=== PATIENT | male | born 1955 | race Caucasian/White ===

== ENCOUNTER → 2021-12-04 | Outpatient (CLI) | payer MEDICARE, OTHER ==
--- NOTE | 2021-12-04 12:44 | MR ---
EXAMINATION TYPE: MR lumbar spine wo con DATE OF EXAM: 12/04/2021 COMPARISON: Outside lumbar spine x-ray September 15, 2021 HISTORY: Pain into rt side TECHNIQUE: Multiplanar, multisequence imaging of the lumbar spine is performed without IV contrast. FINDINGS: Sagittal images of the lumbar spine show vertebral body heights to remain satisfactory. Al ignment is stable and straightened. There is multilevel disc desiccation. There is advanced disc spac e narrowing with heterogeneous Modic type II endplate changes and moderate anterior spurring at L4-L5 level. There is mild to moderate disc space narrowing and spurring at L3-L4 level. The conus medull leonor is normal in position and signal ending mid L1 level. Axial images at the T12-L1 and L1-L2 levels appear within normal limits. Axial images at L2-L3 level shows moderate broad-based disc bulge effacing the anterior thecal sac. T here is mild to moderate facet arthropathy and flavum hypertrophy effacing the thecal sac. There is m ild to moderate right greater than left bilateral anterior inferior neural foraminal narrowing. Axial images at the L3-L4 level show posterior spur disc complex effacing the anterior thecal sac jez ng with mild to moderate facet arthropathy and ligamentum flavum hypertrophy effacing the posterior l ateral thecal sac. There is dvbr-xn-xdbxnewg bilateral anterior inferior neural foraminal narrowing. Axial images at the L4-L5 level show posterior spur disc complex effacing the anterior thecal sac. Th ere is mild/moderate facet arthropathy and ligamentum flavum hypertrophy bilaterally. There is mild b ilateral neural foraminal narrowing. Axial images at the L5-S1 level mild/moderate facet arthropathy bilaterally. There is tiny central di sc protrusion. Spinal canal is preserved and there is increased epidural fat. There is mild to modera te bilateral neural foraminal narrowing. Paraspinal muscle bulk is maintained. IMPRESSION: Straightening of lumbar spine with multilevel degenerative changes mid to lower lumbar le vels seen as detailed above.
== END | disposition home or self-care (01) ==
LOC: RADMRIMAIN 10:55
PROVIDERS: ATTEND Nurse Practitioner Family
DX: M47.26 Other spondylosis with radiculopathy, lumbar region (principal); M48.061 Spinal stenosis, lumbar region without neurogenic claudication
CPT/HCPCS: 72148

== ENCOUNTER → 2022-02-13 | Outpatient (CLI) | payer MEDICARE, OTHER ==
--- NOTE | 2022-02-14 05:02 | MR ---
EXAMINATION TYPE: MR shoulder RT wo con DATE OF EXAM: 02/13/2022 COMPARISON: None HISTORY: Right shoulder pain Multiplanar multiecho imaging of the right shoulder performed with no contrast. There is a large shoulder joint effusion. There is spurring at the AC joint with mild subacromial imp ingement. There is large defect in the supraspinatus tendon at the top of the humeral head. There is retraction of the tendon. There is also tear of the infraspinatus tendon near the attachment on the h umeral head. The glenoid chari appear intact. Subscapularis tendon is intact. No evidence of a fractu re. Humeral head is intact. IMPRESSION: Large rotator cuff tear with retraction of the supraspinatus tendon. There is partial tear of the inf raspinatus tendon. Large shoulder joint effusion with subdeltoid effusion.
== END | disposition home or self-care (01) ==
LOC: RADMRIMAIN 12:19
PROVIDERS: ATTEND Orthopaedic Surgery
DX: M75.121 Complete rotator cuff tear or rupture of right shoulder, not specified as traumatic (principal); M25.411 Effusion, right shoulder

== ENCOUNTER → 2022-03-27 | Outpatient (CLI) | payer MEDICARE, OTHER ==
[2022-03-27 14:38] LABS: Basophils # (A) 0.03 X 10*3/uL (0.00-0.10); Basophils % (A) 0.4 %; Eosinophils # (A) 0.12 X 10*3/uL (0.04-0.35); Eosinophils % (A) 1.5 %; HCT 50.7 % (39.6-50.0); HGB 16.8 g/dL (13.0-17.0); Immature Grans, Automated 0.1 %; Lymphocytes # (A) 2.31 X 10*3/uL (0.90-5.00); Lymphocytes % (A) 29.4 %; MCH 29.1 pg (27.0-32.0); MCHC 33.1 g/dL (32.0-37.0); MCV 87.7 fL (80.0-97.0); Mean Platelet Volume 12.1 fL (9.5-12.2); Monocytes # (A) 0.57 X 10*3/uL (0.20-1.00); Monocytes % (A) 7.3 %; NRBC Per 100 WBC 0 /100 WBCS (0.0-0.0); Neutrophils # (A) 4.82 X 10*3/uL (1.80-7.70); Neutrophils % (A) 61.3 %; Platelet Count 220 X 10*3/uL (140-440); RBC 5.78 X 10*6/uL (4.40-5.60); RDW 14.6 % (11.5-14.5); WBC 7.86 X 10*3/uL (4.50-10.00)
[2022-03-27 14:42] LABS: African American GFR (CKD) 76.2 (60.0-200.0); Anion Gap 14.5 mmol/L (10.00-18.00); BUN/Creat Ratio 15.09 Ratio (12.00-20.00); Blood Urea Nitrogen 17.2 mg/dL (9.0-27.0); Calcium 9.2 mg/dL (8.7-10.3); Carbon Dioxide 21.6 mmol/L (20.0-27.5); Non-African American GFR(CKD) 65.7 (60.0-200.0); Potassium 4.6 mmol/L (3.5-5.5)
[2022-03-27 14:46] LABS: Appearance,Urine Clear (Clear); Bilirubin,Urine Negative (Negative); Blood,Urine Negative (Negative); Color,Urine Light Yellow; Glucose,Urine (UA) 4+ (Negative); Ketones,Urine Negative (Negative); Leukocyte Esterase,Urine Negative (Negative); Nitrite,Urine Negative (Negative); Protein,Urine Negative (Negative); Specific Gravity,Urine 1.012 (1.001-1.035); Urobilinogen,Urine <2.0 mg/dL (<2.0)
== END | disposition home or self-care (01) ==
LOC: LABWHC1 10:21
PROVIDERS: ATTEND Nurse Practitioner Family
DX: Z01.812 Encounter for preprocedural laboratory examination (principal)
CPT/HCPCS: 36415; 80048; 81003; 85025; 85730

== ENCOUNTER 2022-04-25 07:30 | Day surgery (SDC) | payer MEDICARE, OTHER ==
[2022-04-18 15:08] VITALS: BMI 37.2
--- NOTE | 2022-04-24 23:21 | HP ---
HISTORY AND PHYSICAL DATE OF SURGERY: Surgery is scheduled for 04/25/2022. HISTORY OF PRESENT ILLNESS: Josh Messer is a 66-year-old gentleman, seen with progressive right shoulder pain. We discussed options for treatment. He elected to proceed with right shoulder arthroscopy. Consent was obtained. Medical and cardiac clearance were provided. PAST MEDICAL HISTORY: Insulin-dependent diabetes, hypertension, hyperlipidemia, cardiovascular disease. PAST SURGICAL HISTORY: Noncontributory. DAILY MEDICATIONS: 1. Lantus insulin. 2. Lisinopril. 3. Lovastatin. 4. Metformin. 5. Verapamil. 6. Furosemide. 7. Trulicity. 8. Lyrica. ALLERGIES: Penicillin and [place]. SOCIAL HISTORY: He denies tobacco use. PHYSICAL EVALUATION OF THE RIGHT SHOULDER: Flexion is 140 degrees, abduction is 110 degrees, external rotation is 35 degrees with some pain and weakness. Tenderness along the anterolateral acromion and rotator cuff insertion. Impingement is positive at 90. Drop-arm sign is positive. Distal neurovascular exam is intact. RADIOGRAPHS: Radiographs of the right shoulder revealed a type 2 acromion, moderate acromioclavicular joint osteoarthritis, and cystic changes of the tuberosity. Right shoulder MRI revealed a large rotator cuff tear along with an effusion. IMPRESSION: 1. Right shoulder impingement with large rotator cuff tear. 2. Right shoulder acromioclavicular joint osteoarthritis. 3. Hypertension. 4. Hyperlipidemia. 5. Insulin-dependent diabetes. PLAN: Right shoulder arthroscopy with subacromial decompression, rotator cuff repair, Yee procedure, and debridement. MMODL / IJN: [id number] /
[~2022-04-25 07:30] MED LIST: ceFAZolin 3 GM in SODIUM CHLORIDE 0.9% 100 ML IVPB PRN
[2022-04-25] MEDS ORDERED: DEXAMETHASONE SOD PHOSPHATE 4 MG/ML 1 ML VIAL IV ONE (07:53)
[2022-04-25] MEDS ORDERED: LACTATED RINGERS 1,000 ML IV SCH (07:53)
[2022-04-25] MEDS ORDERED: ONDANSETRON 4 MG/2 ML VIAL IVP ONE (07:53)
[2022-04-25] MEDS ORDERED: HYDROmorphone 0.5 MG/0.5 ML SYRINGE IVP PRN (07:53)
[2022-04-25] MEDS ORDERED: LACTATED RINGERS 1,000 ML IV ONE (08:02)
[2022-04-25 08:10] LABS: Glucose,Whole Blood 96 mg/dL (70-110)
[2022-04-25] MEDS ORDERED: MIDAZOLAM 2 MG/2 ML VIAL IVP ONE (08:37)
[2022-04-25] MEDS ORDERED: PROPOFOL 10 MG/ML 20 ML VIAL IV ONE (09:34)
[2022-04-25] MEDS ORDERED: fentaNYL (PF) 50 MCG/ML 2 ML AMP ONE (09:34)
[2022-04-25] MEDS ORDERED: LIDOCAINE 2% INJ 20 MG/ML (2 ML VIAL) ONE (09:34)
[2022-04-25] MEDS ORDERED: SUCCINYLCHOLINE CHLORIDE 200 MG/10 ML VIAL IV ONE (09:34)
[2022-04-25] MEDS ORDERED: DEXAMETHASONE SOD PHOSPHATE 4 MG/ML 1 ML VIAL ONE (09:34)
[2022-04-25] MEDS ORDERED: ROPIVACAINE 5 MG/ML 30 ML VIAL ONE (09:34)
[2022-04-25] MEDS ORDERED: MIDAZOLAM 2 MG/2 ML VIAL ONE (09:34)
--- NOTE | 2022-04-25 11:34 | P.OP ---
Date of Procedure: 04/25/22 Preoperative Diagnosis: Right shoulder impingement with rotator cuff tear Postoperative Diagnosis: 1. Right shoulder massive retracted rotator cuff tendon tear 2. Right shoulder impingement 3. Right shoulder partial long head biceps tendon tear Procedure(s) Performed: 1. Right shoulder arthroscopic rotator cuff repair 2. Right shoulder arthroscopic subacromial decompression 3. Right shoulder arthroscopic biceps tenotomy Implants: 14.75 Arthrex swivel lock anchor Anesthesia: GETA, regional (Interscalene block) Surgeon: Norbert Mejia Lighting Fixture Installer #1: Teodoro Sanz Estimated Blood Loss (ml): 11 Pathology: none sent Condition: stable Disposition: PACU Indications for Procedure: 66-year-old gentleman seen with progressive right shoulder pain. After having treatment options discussed, he elected to proceed with arthroscopy. Operative Findings: See description of procedure Description of Procedure: Patient underwent an interscalene block by department of anesthesia. The patient was then taken to the operative suite. The patient underwent a general anesthetic by the department of anesthesia. The patient was placed into a lateral position and secured. There was appropriate padding of the bony prominence. Right shoulder was then prepped and draped in normal sterile orthopedic fashion. We placed the extremity in 10 pounds of longitudinal trac tion. A posterior incision was now made for a posterior working portal site. The trocar and cannula were inserted into the glenohumeral joint. Arthroscopy was initiated. Spinal needle was now inserted anteriorly, to ascertain the anterior working portal site. An incision was now made in that area, a trocar was inserted followed by a probe. There was partial tearing of the long head biceps tendon. There was some fraying of the anterior and superior labrum. There were grade 1 chondromalacia changes of the glenohumeral joint. I performed an arthroscopic biceps tenotomy. I debrided out the superficial labral tears. The remaining labrum appeared stable. Instruments were now removed from the glenohumeral joint. Utilizing the posterior working portal site, the trocar and cannula were inse rted into the subacromial space. Arthroscopy initiated. I made an incision 2 fingerbreadths lateral to the acromion. I introduced my trocar followed by my ArthroCare ablator. I now began ablating thick subacromial bursal tissue, which exposed the undersurface of the anterior acromion. There was diminished subacromial space. There was a very prominent anterior acromion. A motorized bur was introduced and a subacromial decompression was performed. I also excised some osteophytes off the inferior aspect of the distal clavicle. The AC joint was visualized and noted to be moderately arthritic, I did not think enough toward a Yee procedure. I turned my attention to the rotator cuff tendon. There was a massive retracted tear noted. The tear measured approximately 4.55 centimeters and was retracted anteriorly to the level of the glenoid. I performed a release along the anterior, midportion and posterior aspect of the tendon. I was able just barely get release enough to possibly get over the footprint. I abraded the footprint with a motorized bur. With the assistance of Edy NELSON I pasted 3 converging sutures. This helped mobilize the tendon getting at least to the level of the footprint area. I decided to proceed with repair of this. With the assistance of Edy NELSON past 3 everted mattress suture through good bites of rotator cuff tendon. An engine manager portal site was now made off the lateral acromion. All suture limbs were passed an engine manager portal site. I punched on the footprint area for insertion of an anchor. All 6 limbs of suture were now passed through the eyelet of a 4.75 Arthrex swivel lock anchor. I placed anchors into the pre-punch hole. I held it in position while Edy NELSON tension all 6 limbs of suture and the be the anchor with good fixation noted. All residual suture limbs were clipped. The repair was under quite a bit of tension but just to the edge of the footprint. Instruments now removed from the portal sites. All portal sites were approximated with nylon suture. Sterile dressings were applied followed by a shoulder immobilizer. Teodoro NELSON assisted in this complex case. The patient was awakened, transferred to a bed, and taken to recovery in stable condition. The prognosis remains guarded given the significant retracted tear.
[2022-04-25 11:37] VITALS: TEMP 96.9
--- NOTE | 2022-04-25 13:03 | P.ANPRN ---
Procedure Note - Anesthesia - Nerve Block Performed Right Interscalene Single Date of Procedure: 04/25/22 Procedure Start Time: 08:36 Procedure Stop Time: 08:42 Location of Patient: PreOp Indication: Acute Post-Operative Pain, Requested by Surgeon Sedation Type: Sedate with meaningful contact maintained Preparation: Sterile Prep Position: Supine Needle Types: Pajunk Needle Gauge: 21 Ultrasound used to visualize needle placement: Yes Ultrasound used to observe medication spread: Yes Injectate: 0.5% Ropivacaine (see comment for volume) (20mL with Decadron 4mg) Blood Aspirated: No Pain Paresthesia on Injection Noted: No Resistance on Injection: Normal Image Stored and Saved: Yes Events: Uneventful and Well Tolerated
[2022-04-25 13:31] VITALS: BP 131/79; PULSE 72; RESP 15
== END 2022-04-25 14:00 | disposition home or self-care (01) ==
LOC: OR 07:30
PROVIDERS: ATTEND Orthopaedic Surgery
DX: S46.011A Strain of muscle(s) and tendon(s) of the rotator cuff of right shoulder, initial encounter (principal); M75.41 Impingement syndrome of right shoulder; I10 Essential (primary) hypertension; I25.10 Atherosclerotic heart disease of native coronary artery without angina pectoris; E78.5 Hyperlipidemia, unspecified; E11.9 Type 2 diabetes mellitus without complications; Z79.4 Long term (current) use of insulin; Z88.0 Allergy status to penicillin; Z88.5 Allergy status to narcotic agent; Z79.899 Other long term (current) drug therapy; M19.011 Primary osteoarthritis, right shoulder; X58.XXXA Exposure to other specified factors, initial encounter
CPT/HCPCS: 64415; 76942; 29827; 29826; C1713 ×2; J2250; J0330; J1100; J0690; J2405; J3010; J2795; J2704; J2001

== ENCOUNTER → 2022-06-27 | Outpatient (CLI) | payer MEDICARE, OTHER ==
[2022-06-27 14:26] LABS: Basophils # (A) 0.02 X 10*3/uL (0.00-0.10); Basophils % (A) 0.3 %; Eosinophils # (A) 0.16 X 10*3/uL (0.04-0.35); Eosinophils % (A) 2.3 %; HCT 50.4 % (39.6-50.0); HGB 16.2 g/dL (13.0-17.0); Immature Grans, Automated 0.3 %; Lymphocytes # (A) 2.32 X 10*3/uL (0.90-5.00); Lymphocytes % (A) 33.6 %; MCH 28.9 pg (27.0-32.0); MCHC 32.1 g/dL (32.0-37.0); MCV 89.8 fL (80.0-97.0); Mean Platelet Volume 11.3 fL (9.5-12.2); Monocytes # (A) 0.58 X 10*3/uL (0.20-1.00); Monocytes % (A) 8.4 %; NRBC Per 100 WBC 0 /100 WBCS (0.0-0.0); Neutrophils # (A) 3.81 X 10*3/uL (1.80-7.70); Neutrophils % (A) 55.1 %; Platelet Count 222 X 10*3/uL (140-440); RBC 5.61 X 10*6/uL (4.40-5.60); RDW 14.8 % (11.5-14.5); WBC 6.91 X 10*3/uL (4.50-10.00)
[2022-06-27 14:36] LABS: Anion Gap 12.5 mmol/L (10.00-18.00); BUN/Creat Ratio 13.91 Ratio (12.00-20.00); Blood Urea Nitrogen 15.3 mg/dL (9.0-27.0); Calcium 10.1 mg/dL (8.7-10.3); Carbon Dioxide 26.5 mmol/L (20.0-27.5); Non-African American GFR(CKD) 68.1 (60.0-200.0); Potassium 4.3 mmol/L (3.5-5.5)
[2022-06-27 15:23] LABS: INR 0.94 (0.90-1.11); Prothrombin Time 10.7 sec (9.9-11.9)
[2022-06-27 17:47] LABS: Appearance,Urine Clear (Clear); Bilirubin,Urine Negative (Negative); Blood,Urine Negative (Negative); Color,Urine Yellow (Yellow); Ketones,Urine Negative (Negative); Nitrite,Urine Negative (Negative); Specific Gravity,Urine 1.013 (1.001-1.030); Urobilinogen,Urine 0.2 (0.2,1.0)
== END | disposition home or self-care (01) ==
LOC: LABPAT 10:50
PROVIDERS: ATTEND Orthopaedic Surgery
DX: Z01.812 Encounter for preprocedural laboratory examination (principal); Z22.322 Carrier or suspected carrier of Methicillin resistant Staphylococcus aureus; M47.816 Spondylosis without myelopathy or radiculopathy, lumbar region; M48.061 Spinal stenosis, lumbar region without neurogenic claudication; I10 Essential (primary) hypertension; E11.9 Type 2 diabetes mellitus without complications
CPT/HCPCS: 36415; 80048; 81003; 85025; 85610; 87070

== ENCOUNTER → 2023-03-21 | Outpatient (CLI) | payer MEDICARE, OTHER ==
[2023-03-21 10:52] LABS: Basophils # (A) 0.03 X 10*3/uL (0.00-0.10); Basophils % (A) 0.5 %; Eosinophils # (A) 0.21 X 10*3/uL (0.04-0.35); Eosinophils % (A) 3.2 %; HCT 47.4 % (39.6-50.0); HGB 15.6 d/dL (13.0-17.0); Lymphocytes # (A) 2.24 X 10*3/uL (0.90-5.00); Lymphocytes % (A) 34.4 %; MCH 28.4 pg (27.0-32.0); MCHC 32.9 d/dL (32.0-37.0); MCV 86.2 FL (80.0-97.0); Mean Platelet Volume 10.2 FL (9.5-12.2); Monocytes # (A) 0.58 X 10*3/uL (0.20-1.00); Monocytes % (A) 8.9 %; NRBC Per 100 WBC 0 X 10*3/uL (0.00-0.01); Neutrophils # (A) 3.45 X 10*3/uL (1.80-7.70); Neutrophils % (A) 52.8 %; Platelet Count 209 X 10*3/uL (140-440); RDW 14.9 % (11.5-14.5); WBC 6.52 X 10*3/uL (4.50-10.00)
[2023-03-21 11:01] LABS: Blood Urea Nitrogen 22.8 mg/dL (9.0-27.0); Calcium 9.3 mg/dL (8.7-10.3); Carbon Dioxide 23.7 mmol/L (21.6-31.8); Chloride 105 mmol/L (96-109); Glucose 79 mg/dL (70-110); Potassium 4.2 mmol/L (3.5-5.5); Sodium 140 mmol/L (135-145)
[2023-03-21 11:49] LABS: INR 1.04 sec (0.93-1.11); Prothrombin Time 11.2 sec (9.9-11.9)
== END | disposition home or self-care (01) ==
LOC: LABWHC1 06:56
PROVIDERS: ATTEND Orthopaedic Surgery
DX: Z01.812 Encounter for preprocedural laboratory examination (principal); Z22.322 Carrier or suspected carrier of Methicillin resistant Staphylococcus aureus; M16.11 Unilateral primary osteoarthritis, right hip
CPT/HCPCS: 36415; 80048; 85025; 85610; 87070

== ENCOUNTER → 2023-04-05 | Outpatient (CLI) | payer MEDICARE, OTHER | END | disposition home or self-care (01) | LOC: LABPAT 06:54 | PROVIDERS: ATTEND Orthopaedic Surgery | DX: Z01.812 Encounter for preprocedural laboratory examination (principal); M16.11 Unilateral primary osteoarthritis, right hip | CPT/HCPCS: 86850; 86900; 86901 ==

== ENCOUNTER 2023-04-15 07:53 | Day surgery (SDC) | payer MEDICARE, OTHER ==
[2023-04-09 13:11] VITALS: BMI 36.4
--- NOTE | 2023-04-14 12:40 | HP ---
HISTORY AND PHYSICAL DATE OF SURGERY: 04/15/2023. HISTORY OF PRESENT ILLNESS: Josh Messer is a 67-year-old gentleman seen with symptomatic right hip osteoarthritis. We discussed options. He elected to proceed with direct anterior right total hip arthroplasty. Consent regarding the procedure was obtained. Cardiac clearance was provided by Dr. Ruff. PAST MEDICAL HISTORY: Hypertension, hyperlipidemia, insulin-dependent diabetes, cardiovascular disease. SURGICAL HISTORY: Arthroscopy. DAILY MEDICATIONS: 1. Lantus insulin. 2. Aspirin. 3. Lisinopril. 4. Lovastatin. 5. Metformin. 6. Verapamil. ALLERGIES: Penicillin and Narco. SOCIAL HISTORY: Denies tobacco use. PHYSICAL EVALUATION OF THE RIGHT HIP: He has diffuse tenderness about the hip girdle. Limited range of motion. Positive hip impingement sign. Straight-leg raise negative. Distal neurovascular exam is intact. IMAGING STUDIES: Radiographs of the right hip reveals severe osteoarthritic changes. IMPRESSION: 1. Right hip osteoarthritis. 2. Hyperlipidemia. 3. Hypertension. 4. Insulin-dependent diabetes. PLAN: Direct anterior right total hip arthroplasty. MMODL / IJN: [id number] /
[~2023-04-15 07:53] MED LIST changes: +ACETAMINOPHEN TAB 500 MG TAB PO PRN; +MELOXICAM 7.5 MG TAB PO PRN; +TRANEXAMIC 1,000 MG/100ML-NACL 1,000 MG in SALINE 1 100ML.BAG IVPB PRN
[2023-04-15] MEDS ORDERED: ONDANSETRON 4 MG/2 ML VIAL IVP ONE (08:30)
[2023-04-15] MEDS ORDERED: MIDAZOLAM 2 MG/2 ML VIAL IV PRN (08:30)
[2023-04-15] MEDS: LACTATED RINGERS 1,000 ML IV SCH ×2 (08:30→20:47)
[2023-04-15] MEDS ORDERED: fentaNYL (PF) 50 MCG/ML 2 ML AMP IV PRN (08:30)
[2023-04-15] MEDS ORDERED: DEXAMETHASONE SOD PHOSPHATE 4 MG/ML 1 ML VIAL IV ONE (08:30)
[2023-04-15 08:43] LABS: Glucose,Whole Blood 93 mg/dL (70-110)
--- NOTE | 2023-04-15 09:19 | P.ANPRN ---
Procedure Note - Anesthesia - Nerve Block Performed Right Col[place] Single Time Out Performed: Yes Date of Procedure: 04/15/23 Procedure Start Time: :04 Procedure Stop Time: :09 Location of Patient: PreOp Indication: Acute Post-Operative Pain, Requested by Surgeon Sedation Type: Sedate with meaningful contact maintained Preparation: Sterile Prep Position: Supine Catheter: None Needle Types: Pajunk Needle Gauge: 21 Ultrasound used to visualize needle placement: Yes Ultrasound used to observe medication spread: Yes Injectate: 0.5% Ropivacaine (see comment for volume) (Ropiv 10ml+NS 10ml) Blood Aspirated: No Pain Paresthesia on Injection Noted: No Resistance on Injection: Normal Image Stored and Saved: Yes Events: Uneventful and Well Tolerated
[2023-04-15] MEDS ORDERED: ceFAZolin 1,000 MG in SODIUM CHLORIDE 0.9% 1,000 ML IRRIGATION ONE (10:24)
[2023-04-15] MEDS ORDERED: LACTATED RINGERS 1,000 ML IV ONE (11:45)
--- NOTE | 2023-04-15 12:11 | XR ---
EXAMINATION TYPE: XR Hip Limited RT DATE OF EXAM: 04/15/2023 CLINICAL HISTORY: Postoperative evaluation TECHNIQUE: Single portable view of the right hip was submitted. FINDINGS: Noted are changes of total hip arthroplasty with femoral and acetabular components appearin g well seated. Alignment is anatomic. Postsurgical soft tissue changes are evident. IMPRESSION: Satisfactory postoperative alignment
[2023-04-15] MEDS ORDERED: NALOXONE 0.4 MG/ML 1 ML VIAL IV PRN (12:12)
[2023-04-15] MEDS ORDERED: ONDANSETRON 4 MG/2 ML VIAL IVP PRN (12:12)
[2023-04-15] MEDS ORDERED: HYDROcodone/APAP 7.5-325MG 1 EACH TAB PO PRN (12:12)
[2023-04-15] MEDS ORDERED: HYDROcodone/APAP 5-325MG 1 EACH TAB PO PRN (12:12)
[2023-04-15] MEDS ORDERED: HYDROmorphone 0.5 MG/0.5 ML SYRINGE IVP PRN ×2 (12:12)
--- NOTE | 2023-04-15 12:12 | P.OP ---
Date of Procedure: 04/15/23 Preoperative Diagnosis: Right hip osteoarthritis Postoperative Diagnosis: Right hip osteoarthritis Procedure(s) Performed: Direct anterior right total hip arthroplasty Implants: 1. Depuy Corail 135 standard collar KA size 11 aspect femoral stem 2. Depuy pinnacle 66 mm press-fit acetabular shell augmented with 2-6.5 mm screws 3. Depuy dual mobility liner 66 mm BI-MENTUM PE liner 55/28 4. Depuy BI-METUM Altrx liner 55/28 5. Depuy Biolox delta ceramic revision femoral head 28 mm +8.5 Anesthesia: GETA, regional (Erector spinae block) Surgeon: Norbert Mejia User Support Analyst #1: Teodoro Sanz Estimated Blood Loss (ml): 75 Pathology: none sent Condition: stable Disposition: PACU Indications for Procedure: 67-year-old gentleman seen with symptomatic right hip osteoarthritis. After discussing treatment options, he elected to proceed with direct anterior right total hip arthroplasty. We did review dual mobility secondary to his multilevel lumbar spine fusion. Operative Findings: see description of procedure Description of Procedure: The patient was taken to the operative suite. Patient underwent a general anesthetic by the department of anesthesia. Patient was then transferred to the [place] table. Patient was given preoperative IV antibiotics and TXA. Both lower extremities were placed in standard leg spars. The hip was then prepped and draped in the normal sterile orthopedic fashion. A standard anterior incision was made beginning 3 cm lateral and 1 cm distal to the ASIS extending 10 cm. Dissection was then carried down through the subcutaneous soft tissues down to the fascia overlying the tensor fascia darrian. An incision was now made through the fascia. Careful dissection was taken down exposing the tensor fascia darrian muscle. A Cobra retractor was now placed along the medial femoral neck and a second one along the lateral femoral neck. The venous circumflex vessels were now identified, cauterized and clipped. We identified the anterior hip capsule. An incision was made through the hip capsule along the lateral border. I performed a partial anterior capsulectomy. Retractors were now placed around the femoral neck itself. A femoral neck cut was now made with a sagittal saw. It was completed with an osteotome at the lateral neck area. The femoral head was now removed without difficulty. The extremity was now rotated to 60 of external rotation. It was locked in position. Residual labrum was now debrided out. Serial reaming was performed of the acetabulum while Edy NELSON assisted holding an anterior retractor for exposure. Once we reached the appropriate size and a trial was position and fit nicely. The appropriate size was now chosen opened and made available. It was introduced into the acetabulum without difficulty. The C-arm/fluoroscopy was now brought into the operative field. We made sure we had a true AP pelvic view. We now under direct C- arm/fluoroscopy introduced into the acetabular component with appropriate version and inclination. I held the cup in appropriate position while Edy NELSON used a mallet to seat the acetabular component. I noted the component now to be well seated and stable. I did introduce 2 screws to augment the fixation here. The C-arm was pulled back. An appropriate dual mobility liner was introduced and clicked into position. It was felt to be stable. At this point retractors were removed. The extremity was now placed into 120 external rotation with no traction. The leg was now dropped to the ground and adducted. Appropriate retractors were now positioned along the proximal femur. We also placed our femoral look into position. Additional capsular releasing was performed to gain access to the proximal femur. We now used a box osteotome. A canal finder was now utilized. Serial broaching was now performed with the assistance of Edy NELSON tapping the broaches down with a mallet while held the broach in appropriate rotation and position. This was done until we reached the appropriate size with good overall rotational stability. Appropriate calcar planing was performed. A trial head/neck dual mobility was placed into position. The hip was now reduced. The C-arm/fluoroscopy was brought back into the operative field. I obtained an AP pelvis x-ray which demonstrated adequate leg length as well as appropriate position and sizing of the components. The C-arm/fluoroscopy was pulled back. Retractors were repositioned and the hip was dislocated. The leg was again taken down to the ground and adducted. Appropriate retractors were repositioned as well as the femoral hook. All trial components were removed. The femoral implant was opened along with the femoral head. The femoral implant was introduced on the appropriate handle into our pre-broached area. I held the component position well Edy NELSON used a mallet to seat the femoral component. The femoral component was now noted to be well seated and stable.. The dual mobility femoral head was introduced with good positioning and fixation noted. Retractors were now removed. The hip was now reduced. There appeared be good positioning of the hip confirmed on intraoperative fluoroscopy. Spot films were obtained to document this. A second gram of TXA was given. Bipolar cautery had been utilized intermittently through the procedure for hemostasis. The wound was irrigated copiously with pulse lavage mechanical irrigation. The fascia was repaired with Vicryl suture. The subcutaneous soft tissues were repaired in layers with Vicryl suture. The skin was approximated with pernio/Dermabond. Sterile dressings were applied. Patient was then awakened, transferred to a bed and taken to recovery in stable condition. Edy NELSON assisted with the complex procedure.
--- NOTE | 2023-04-15 12:40 | FL ---
Fluoroscopy History: RT ANTERIOR HIP R HIP REPLACEMENT, 16SEC FL TIME, DAP=3.1332
[2023-04-15 12:43] LABS: Glucose,Whole Blood 134 mg/dL (70-110)
[2023-04-15] MEDS ORDERED: traMADol 50 MG TAB PO PRN (14:59)
[2023-04-15] MEDS ORDERED: DEXTROSE 50% SYRINGE 50 ML IVP PRN ×2 (15:57)
[2023-04-15] MEDS: HYDROmorphone 0.5 MG/0.5 ML SYRINGE IVP PRN ×2 (16:35→20:43)
[2023-04-15 16:57] LABS: Glucose,Whole Blood 214 mg/dL (70-110)
[2023-04-15] MEDS: INSULIN ASPART (NovoLOG) 100 UNIT/ML VIAL SQ SCH ×2 (17:05→20:42)
[2023-04-15] MEDS: ceFAZolin 3 GM in SODIUM CHLORIDE 0.9% 100 ML IVPB SCH (17:05)
--- NOTE | 2023-04-15 17:11 | P.CONS ---
History of Present Illness - Reason for Consult Consult date: 04/15/23 - History of Present Illness 67-year-old male with PMH of CAD, hypertension, dyslipidemia, type 2 diabetes mellitus presents to [facility] for elective surgery. He underwent direct anterior right total hip arthroplasty with Dr. Mejia. He was seen and examined post operatively. Able to urinate. Pain 6-9/10 in severity, worsened with movement. He has no complaints. Pertinent positives and negatives as discussed in HPI, a complete review of systems was performed and all other systems are negative. General: non toxic, no distress, appears at stated age Derm: warm, dry Head: atraumatic, normocephalic, symmetric Eyes: EOMI, no lid lag, anicteric sclera Cardiovascular: S1S2 reg, no murmur Lungs: CTA bilateral, no rhonchi, no rales , no accessory muscle use Ext: no gross muscle atrophy, no edema, no contractures Neuro: no focal neuro deficits Psych: Alert, oriented, appropriate affect CAD DM HTN HLD Based on my assessment of this patient, this patient meets a moderate complexity level of care. CAD: ASA 81 mg PO QD. Lipitor 80 mg PO QHS. Metoprolol 25 mg PO BID. DM: ISS. Accuchecks ACHS. Hypoglycemic precautions. HTN: Lisinopril 10 mg PO QHS. Metoprolol as above. HLD: Lipitor as above. CODE STATUS: FULL CODE. DVT Prophylaxis: Lovenox GI Prophylaxis: Designated medical POA if patient is not able to make medical decisions for themselves: I have reviewed the following senior analytic consultant notes: Orthopedic surgery ntoe. I have reviewed the results of the following tests: POC glucose. I have ordered the following tests: Agree with CBC. I have discussed the care of this patient with the following independent historian: Discussed with RN. I have independently interpreted the following test below: I have discussed the management of this patient with the following physician: Past Medical History Past Medical History: Diabetes Mellitus, Hyperlipidemia, Hypertension, Osteoarthritis (OA) Additional Past Medical History / Comment(s): hiatal hernia Last Myocardial Infarction Date:: 08/07/17 History of Any Multi-Drug Resistant Organisms: None Reported Past Surgical History: Back Surgery, Cholecystectomy, Heart Catheterization With Stent, Orthopedic Surgery Additional Past Surgical History / Comment(s): lt knee scope,left knee replaced,rt shoulder rot cuff repaired,3 FATTY TUMORS REMOVED on chest, right armpit, behind right ear. ,CYSTOSCOPY. COLONSCOPY,lumbar back fusion,lisa cataracts, right hip. Past Anesthesia/Blood Transfusion Reactions: Motion Sickness Additional Past Anesthesia/Blood Transfusion Reaction / Comm: "spinal went up and I was numb from armpit down for arthroscopy". no known hx of blood transfusion Date of Last Stent Placement:: 2016 Past Psychological History: No Psychological Hx Reported Smoking Status: Never smoker Past Alcohol Use History: None Reported Past Drug Use History: None Reported - Past Family History Brother(s) Family Medical History: Cancer Medications and Allergies Home Medications Medication Instructions Recorded Confirmed Type Furosemide 20 mg PO DAILY 03/23/15 04/15/23 History lisinopriL [Lisinopril] 10 mg PO HS 04/04/15 04/15/23 History metFORMIN HCL [Glucophage] 1,000 mg PO BID 04/04/15 04/15/23 History Atorvastatin [Lipitor] 80 mg PO HS 04/18/22 04/15/23 History Dulaglutide [Trulicity] 4.5 mg SQ DOMINGUEZ 04/18/22 04/15/23 History Empagliflozin [Jardiance] 25 mg PO QAM 04/18/22 04/15/23 History Insulin Degludec [Tresiba] 60 units SQ QAM 04/18/22 04/15/23 History Metoprolol Tartrate [Lopressor] 25 mg PO BID 04/18/22 04/15/23 History Nitroglycerin Sl Tabs [Nitrostat] 0.4 mg SUBLINGUAL Q5M PRN 04/18/22 04/15/23 History Pioglitazone [Actos] 15 mg PO DAILY 04/18/22 04/15/23 History Repaglinide 0.5 mg PO AC-SUPPER 04/18/22 04/15/23 History Sildenafil Citrate [Viagra] 100 mg PO DIRECTED PRN 04/18/22 04/15/23 History Aspirin [Adult Low Dose Aspirin EC] 81 mg PO DAILY 06/27/22 04/15/23 History Allergies Allergy/AdvReac Type Severity Reaction Status Date / Time bee venom protein (honey bee) Allergy Swelling Verified 04/15/23 08:18 hydrocodone Allergy Unknown Verified 04/15/23 08:18 hydroxyzine Allergy Rash/Hives Verified 04/15/23 08:18 Penicillins Allergy Anaphylaxis Verified 04/15/23 08:18 novacaine AdvReac prolonged Uncoded 04/15/23 08:18 numbness Physical Exam Vitals: Vital Signs Temp Pulse Pulse Resp BP BP BP 04/15/23 16:15 91 128/72 04/15/23 15:58 87 123/73 04/15/23 15:43 87 123/70 04/15/23 15:29 81 118/64 04/15/23 15:13 84 121/72 04/15/23 14:58 86 126/71 04/15/23 14:43 81 143/75 04/15/23 14:25 83 136/80 04/15/23 14:15 97.4 F L 76 19 129/72 04/15/23 13:30 76 16 118/65 04/15/23 13:15 79 16 114/58 04/15/23 13:00 77 16 128/69 04/15/23 12:45 74 16 130/69 04/15/23 12:30 77 16 124/65 04/15/23 12:28 97.6 F 85 16 128/69 04/15/23 09:24 69 16 112/65 04/15/23 08:17 96.9 F L 67 16 129/67 Pulse Ox 04/15/23 16:15 94 L 04/15/23 15:58 94 L 04/15/23 15:43 94 L 04/15/23 15:29 95 04/15/23 15:13 94 L 04/15/23 14:58 97 04/15/23 14:43 95 04/15/23 14:25 96 04/15/23 14:15 94 L 04/15/23 13:30 95 04/15/23 13:15 94 L 04/15/23 13:00 98 04/15/23 12:45 97 04/15/23 12:30 97 04/15/23 12:28 96 04/15/23 09:24 96 04/15/23 08:17 94 L Intake and Output 04/15/23 04/15/23 04/15/23 06:59 14:59 22:59 Intake Total 1451 Output Total 75 Balance 1376 Intake: IV 1451 Output: Estimated Blood Loss 75 Other: Weight 131 kg Results Labs: Abnormal Lab Results - Last 24 Hours (Table) 04/15/23 04/15/23 Range/Units 12:41 16:55 POC Glucose (mg/dL) 134 H 214 H (70-110) mg/dL
[2023-04-15 20:05] LABS: Glucose,Whole Blood 279 mg/dL (70-110)
[2023-04-15] MEDS: METOPROLOL TARTRATE 25 MG TAB PO SCH (20:42)
[2023-04-15] MEDS ORDERED: lisinopriL 10 MG TAB PO SCH (21:00)
[2023-04-15] MEDS ORDERED: SENNOSIDES-DOCUSATE SODIUM 1 EACH TAB PO SCH (21:00)
[2023-04-15] MEDS ORDERED: ATORVASTATIN 80 MG TAB PO SCH (21:00)
[2023-04-16] MEDS: ceFAZolin 3 GM in SODIUM CHLORIDE 0.9% 100 ML IVPB SCH (01:18)
[2023-04-16] MEDS: LACTATED RINGERS 1,000 ML IV SCH ×3 (01:18→08:28)
[2023-04-16 06:10] LABS: Glucose,Whole Blood 208 mg/dL (70-110)
[2023-04-16] MEDS: INSULIN ASPART (NovoLOG) 100 UNIT/ML VIAL SQ SCH ×2 (06:43→12:04)
[2023-04-16 07:57] VITALS: BP 103/67; PULSE 72; RESP 19; TEMP 97.8
[2023-04-16] MEDS: METOPROLOL TARTRATE 25 MG TAB PO SCH (08:40)
[2023-04-16] MEDS ORDERED: ENOXAPARIN 40 MG/0.4 ML SYRINGE SQ SCH (09:00)
[2023-04-16] MEDS ORDERED: FUROSEMIDE 20 MG TAB PO SCH (09:00)
[2023-04-16] MEDS ORDERED: ASPIRIN 81 MG PO SCH (09:00)
[2023-04-16] MEDS ORDERED: FAMOTIDINE 20 MG TAB PO SCH (09:00)
--- NOTE | 2023-04-16 10:38 | P.PN ---
Subjective Progress Note Date: 04/16/23 Hospital course: Patient is a very pleasant 67-year-old male with a past medical history of CAD, hypertension, hyperlipidemia, insulin-dependent diabetes mellitus, and osteoarthritis. Patient is currently admitted under orthopedic surgery team status post direct anterior right total hip arthroplasty. Surgical procedure was completed on 04/15/[address] Mejia. We have been consulted for medical management throughout patient's hospitalization. Physical exam: Patient seen and fully evaluated at bedside this morning. He is postoperative day one and appears to be doing well. Patient was sitting up in the chair and denies having any postoperative complaints stating mild swelling in his right thigh otherwise feeling great. He denies having any difficulties with urination and reports controlled postoperative pain. Morning labs revealing stable postoperative blood loss anemia with postoperative hemoglobin of 12.6 and preoperative hemoglobin of 15.6. Vital signs reviewed and stable. General: Nontoxic, no distress and appears stated age. Derm: Skin warm and dry, normal coloration for ethnicity. Head: Atraumatic, normocephalic and symmetric. Eyes: EOMs intact, no lid lag, and anicteric sclera Mouth: no lip lesions, mucus membranes moist Cardiovascular: regular rate and rhythm with normal S1S2, no murmur, positive posterior tibial pulses bilaterally, and cap refill < 2 seconds. Lungs: Respirations even, regular, and unlabored on room air. Lungs CTA bila terally, no rhonchi, no rales, no wheezing, and no accessory muscle usage. Abdominal: soft, nontender to palpation, no guarding, no appreciable organomegaly Ext: ROM intact. No gross muscle atrophy, no edema, no contractures Neuro: Speech clear, face symmetrical and CN II-XII grossly intact with no noted focal neuro deficits Psych: Alert and oriented to person, place, time, and situation. Appropriate and pleasant affect. Assessment and Plan of Care: Acute postoperative blood loss anemia -Morning labs revealing stable postoperative blood loss anemia with postoperative hemoglobin of 12.6 and preoperative hemoglobin of 15.6. -This is a staple and expected finding, no active bleeding, no need for transfusion or further workup at this time. Insulin-dependent diabetes mellitus with hyperglycemia -Currently blood glucose 208. Patient is on sliding scale insulin. -Recommend patient resume metformin 1000 mg twice daily, Dulaflutide 4.5 mg subcutaneously weekly, Jardiance 25 mg daily, Repaglinide 0.5 mg daily, Pioglitazone 15 mg daily, and insulin Degludec 60 units each morning upon disc harge. History of CAD Hypertension Hyperlipidemia -Patient to continue with daily medication regimen with lisinopril 10 mg nightly, metoprolol 25 mg twice daily, aspirin 81 mg daily, and atorvastatin 80 mg nightly. Status post right total hip arthroplasty Management per primary admitting orthopedic surgery team including DVT prophylaxis, pain management, wound/dressing care, weightbearing, and PT/OT. Data reviewed: Morning labs reviewed. CBC showing stable postoperative blood loss anemia with hemoglobin of 12.6 otherwise normal findings. Blood glucose was elevated at 208. Vital signs reviewed. Blood pressure 103/67, heart rate 72, respiratory rate 19, temperature 97.8F, SpO2 of 94% on room air. Patient is medically optimized for discharge with no further recommendations at this time. Discharge Medication reconciliation was completed. Patient cleared for discharge once discharge order is placed by primary admitting orthopedic surgery team. Thank you for allowing us to participate in the care of this pleasant patient. Do not hesitate to contact us with questions. Someone can be reached from the [facility] hospitalist group all hours of the day at [phone] or via perfect serve. Patient was seen independently by Nurse Pracitioner. This document was prepared using [employer] dictation software. Please allow for errors in locomotive driver, while rare they do occur. Objective - Vital Signs Vital signs: Vital Signs Temp 97.8 F 04/16/23 07:16 Pulse 72 04/16/23 07:16 Resp 19 04/16/23 07:16 BP 103/67 04/16/23 07:16 Pulse Ox 94 L 04/16/23 07:16 FiO2 Intake & Output 04/15/23 04/16/23 04/16/23 18:59 06:59 18:59 Intake Total 1451 1400 Output Total 75 Balance 1376 1400 Weight 131 kg Intake: IV 1451 Intake, IV Titration 1400 Amount Lactated Ringers 1,000 ml 1200 @ 100 mls/hr IV .Q10H PROSPER Rx#:[id number] ceFAZolin 3 gm In Sodium 200 Chloride 0.9% 100 ml @ 200 mls/hr IVPB Q8H PROSPER Rx#:[id number] Output: Estimated Blood Loss 75 Other: # Voids 1 2 - Labs CBC & Chem 7: 04/16/23 06:00 Labs: Abnormal Lab Results - Last 24 Hours (Table) 04/15/23 04/15/23 04/15/23 Range/Units 12:41 16:55 20:03 POC Glucose (mg/dL) 134 H 214 H 279 H (70-110) mg/dL 04/16/23 Range/Units 06:09 POC Glucose (mg/dL) 208 H (70-110) mg/dL
[2023-04-16 11:05] LABS: Glucose,Whole Blood 235 mg/dL (70-110)
[2023-04-16] MEDS ORDERED: MULTIVITAMINS, THERA 1 EACH TAB PO SCH (12:00)
--- NOTE | 2023-04-16 12:14 | P.PN ---
Subjective Progress Note Date: 04/16/23 Principal diagnosis: Status post direct anterior right total hip arthroplasty Patient evaluated today at bedside, he is up in his hospital chair. Patient is been up and ambulating with minimal assistance and minimal discomfort. Denies any headaches, lightheadedness, chest pain or shortness of breath. Patient is been able to urinate with no difficulties. Objective - Vital Signs Vital signs: Vital Signs Temp 97.8 F 04/16/23 07:16 Pulse 72 04/16/23 07:16 Resp 19 04/16/23 07:16 BP 103/67 04/16/23 07:16 Pulse Ox 94 L 04/16/23 07:16 FiO2 Intake & Output 04/15/23 04/16/23 04/16/23 18:59 06:59 18:59 Intake Total 1451 1400 Output Total 75 Balance 1376 1400 Weight 131 kg Intake: IV 1451 Intake, IV Titration 1400 Amount Lactated Ringers 1,000 ml 1200 @ 100 mls/hr IV .Q10H PROSPER Rx#:[id number] ceFAZolin 3 gm In Sodium 200 Chloride 0.9% 100 ml @ 200 mls/hr IVPB Q8H PROSPER Rx#:[id number] Output: Estimated Blood Loss 75 Other: # Voids 1 2 - Exam Right lower extremity: Incision is clean, dry, and intact. The foam dressing is in good condition. There is minimal soft tissue swelling and ecchymosis surrounding the medial and lateral aspects of the incision] Calf is soft, no tenderness with palpation. Plantar flexion, dorsiflexion, EHL, FHL are intact. Sensory exam to light touch throughout the extremity is intact,dorsal pedis pulses 2+ - Labs Labs: Abnormal Lab Results - Last 24 Hours (Table) 04/15/23 04/15/23 04/15/23 Range/Units 12:41 16:55 20:03 POC Glucose (mg/dL) 134 H 214 H 279 H (70-110) mg/dL 04/16/23 04/16/23 Range/Units 06:09 11:04 POC Glucose (mg/dL) 208 H 235 H (70-110) mg/dL Assessment and Plan Assessment: Postoperative day #1 status post right direct anterior total hip arthroplasty Plan: Pain control, plan for discharge home on Tylenol 3, also utilize stool softeners DVT prophylaxis, aspirin 81 mg twice a day for 30 days Wound care instructions were discussed, this including icing and elevating along with showering Home therapy and nursing after discharge Weight-bear as tolerated with walker recommended Medical recommendations appreciated Discharge planning: Patient stable for discharged home today Time with Patient: Less than 30
--- NOTE | 2023-04-16 12:17 | P.DS ---
Providers Date of admission: 04/15/2023 Expected date of discharge: 04/16/23 Attending physician: Norbert Mejia Consults: 04/15/23 12:12 Consult Physician Routine Consulting Provider: Mirela Camejo Consult Reason/Comments: Medical management Do you want consulting provider notified?: Yes Primary care physician: Stated None Hospital Course: Date of admission: 04/15/2023 Date of discharge: 04/16/2023 Admission diagnosis: Status post direct anterior right total hip arthroplasty Discharge diagnosis: Same Attending physician: Dr. Mejia Surgical procedures: Direct anterior right total hip arthroplasty Brief history: Patient is a 67-year-old male with a history of progressive primary right hip osteoarthritis. At this point patient has failed conservative treatment measures and has opted to proceed with a elective direct anterior right total hip arthroplasty. Hospital course: Details of patient's surgery can be found in operative report. Patient tolerated the procedure well and was subsequently transported to orthopedic floor. Patient's orthopeidc and medical care was provided daily. Patient had daily laboratory tests performed for evaluation of overall blood counts. Patient had daily physical therapy to include strengthening range of motion as well as education with walker ambulation. Patient was treated with Lovenox for their postoperative DVT prophylaxis during their inpatient stay. Patient was noted to have a relatively uneventful postoperative course. Patient reported satisfactory pain control with oral pain medications by postoperative day 0. Patient showed satisfactory progress with physical therapy. Patient moved steadily through the program and had no difficulty meeting the goals by postoperative day 1. Given patient's otherwise satisfactory course and having met physical therapy goals, plan is to discharge patient home on postoperative day 1. Discharge condition/disposition: Patient will be discharged home in stable condition. Discharge medications: Instructions are given on resumption of patient's normal daily medications per primary care recommendation, in addition patient will be prescribed Tylenol 3 with codeine, senna S, aspirin 81 mg. Discharge instructions: 1. Wound care and infection precautions, keep incision dry and covered while showering, no lotions, creams, moisturizers. No soaking, tubs, pools, hottubs. Do not scrub over the incision. 2. Weight-bear as tolerated with walker / cane until follow-up. 3. Ice and elevate when necessary. Do not exceed 20 minutes per hour with ice pack. 4. Utilize compression sleeve until seen at first follow up appointment. 5. Visiting nursing care. 6. Home physical therapy. 7. Pain meds and anticoagulants per prescription. 8. Pain medication has potential to cause constipation. Increase oral fluid and fiber intake. Contact primary care provider if you have not had a bowel movement within 48 hours after discharge 9. No anti-inflammatory medication until discussed at first post operative visit, this including Motrin, Aleve, Mobic, Diclofenac. 10. Follow up in office at 2 weeks postop with Edy Sanz PA-C/Scar Juarez 11. Follow up with your primary care doctor 7-10 days after discharge. 12. Contact [facility] with any questions, . Procedures: Direct anterior right total hip arthroplasty Patient Condition at Discharge: Good Plan - Discharge Summary Discharge Rx Participant: Yes New Discharge Prescriptions: New Sennosides/Docusate Sodium [Senna-S 8.6-50 mg Tablet] 2 each PO DAILY PRN #30 tablet PRN Reason: Constipation Aspirin [Adult Low Dose Aspirin EC] 81 mg PO BID #60 tab Acetaminophen-Codeine 300-30mg [Tylenol w/codeine #3] 1 tab PO Q6H PRN 7 Days #28 tablet PRN Reason: Pain Continue Furosemide 20 mg PO DAILY metFORMIN HCL [Glucophage] 1,000 mg PO BID lisinopriL [Lisinopril] 10 mg PO HS Metoprolol Tartrate [Lopressor] 25 mg PO BID Aspirin [Adult Low Dose Aspirin EC] 81 mg PO DAILY Atorvastatin [Lipitor] 80 mg PO HS Dulaglutide [Trulicity] 4.5 mg SQ DOMINGUEZ Empagliflozin [Jardiance] 25 mg PO QAM Insulin Degludec [Tresiba] 60 units SQ QAM Nitroglycerin Sl Tabs [Nitrostat] 0.4 mg SUBLINGUAL Q5M PRN PRN Reason: Chest Pain Pioglitazone [Actos] 15 mg PO DAILY Repaglinide 0.5 mg PO AC-SUPPER Sildenafil Citrate [Viagra] 100 mg PO DIRECTED PRN PRN Reason: E.D Discharge Medication List Furosemide 20 mg PO DAILY 03/23/15 [History] lisinopriL [Lisinopril] 10 mg PO HS 04/04/15 [History] metFORMIN HCL [Glucophage] 1,000 mg PO BID 04/04/15 [History] Atorvastatin [Lipitor] 80 mg PO HS 04/18/22 [History] Dulaglutide [Trulicity] 4.5 mg SQ DOMINGUEZ 04/18/22 [History] Empagliflozin [Jardiance] 25 mg PO QAM 04/18/22 [History] Insulin Degludec [Tresiba] 60 units SQ QAM 04/18/22 [History] Metoprolol Tartrate [Lopressor] 25 mg PO BID 04/18/22 [History] Nitroglycerin Sl Tabs [Nitrostat] 0.4 mg SUBLINGUAL Q5M PRN 04/18/22 [History] Pioglitazone [Actos] 15 mg PO DAILY 04/18/22 [History] Repaglinide 0.5 mg PO AC-SUPPER 04/18/22 [History] Sildenafil Citrate [Viagra] 100 mg PO DIRECTED PRN 04/18/22 [History] Aspirin [Adult Low Dose Aspirin EC] 81 mg PO DAILY 06/27/22 [History] Acetaminophen-Codeine 300-30mg [Tylenol w/codeine #3] 1 tab PO Q6H PRN 7 Days #28 tablet 04/16/23 [Rx] Aspirin [Adult Low Dose Aspirin EC] 81 mg PO BID #60 tab 04/16/23 [Rx] Sennosides/Docusate Sodium [Senna-S 8.6-50 mg Tablet] 2 each PO DAILY PRN #30 tablet 04/16/23 [Rx] Follow up Appointment(s)/Referral(s): [facility], [NON-STAFF] - 1-2 Days ([facility] will call you to schedule your in home physical therapy and nursing visits. ) Teodoro Sanz PAC [PHYSICIAN OPERATIONS RESEARCH DIRECTOR] - 2 Weeks Activity/Diet/Wound Care/Special Instructions: Orthopedic Discharge Instructions: 1. Wound care and infection precautions, keep incision dry and covered while showering, no lotions, creams, moisturizers. No soaking, pools, hot tubs. Do not scrub over incision. 2. Weight-bear as tolerated with walker / cane until follow-up. 3. Ice and elevate when necessary. Do not exceed 20 minutes per hour with ice pack. 4. Utilize compression sleeve until seen at first follow up appointment. 5. Pain meds and anticoagulants per prescription. 6. Pain medication has potential to cause constipation. Increase oral fluid and fiber intake. Contact primary care provider if you have not had a bowel movement within 48 hours after discharge. 7. No anti-inflammatory medication until discussed at first post operative visit, this including Motrin, Aleve, Mobic, Diclofenac. 8. Follow up in office at 2 weeks postop with Edy Sanz PA-C/Scar Abbott PA-C 9. Follow up with your primary care doctor 7-10 days after discharge. 10. Contact [facility] with any questions, . Wound care instructions: 1. Okay to remove surgical dressing as of 04/22/2023 2. Okay to shower directly over the incision as of 04/22/2023 Discharge Disposition: HOME WITH HOME HEALTH SERVICES
[2023-04-16 13:33] LABS: Basophils # (A) 0.01 X 10*3/uL (0.00-0.10); Basophils % (A) 0.1 %; Eosinophils # (A) 0.03 X 10*3/uL (0.04-0.35); Eosinophils % (A) 0.4 %; HCT 38.1 % (39.6-50.0); HGB 12.6 g/dL (13.0-17.0); Lymphocytes # (A) 2.09 X 10*3/uL (0.90-5.00); Lymphocytes % (A) 30.2 %; MCH 28.7 pg (27.0-32.0); MCHC 33.1 g/dL (32.0-37.0); MCV 86.8 FL (80.0-97.0); Monocytes # (A) 0.88 X 10*3/uL (0.20-1.00); Monocytes % (A) 12.7 %; NRBC Per 100 WBC 0 X 10*3/uL (0.00-0.01); Neutrophils % (A) 56.3 %; Platelet Count 208 X 10*3/uL (140-440); RBC 4.39 X 10*6/uL (4.40-5.60); RDW 15.1 % (11.5-14.5); WBC 6.93 X 10*3/uL (4.50-10.00)
== END 2023-04-16 14:05 | disposition home health service (06) ==
LOC: OR 07:53 → 4SSUR 12:20 → OR 04-16 14:05
PROVIDERS: ATTEND Orthopaedic Surgery
DX: M16.11 Unilateral primary osteoarthritis, right hip (principal); I10 Essential (primary) hypertension; E78.5 Hyperlipidemia, unspecified; E11.9 Type 2 diabetes mellitus without complications; I25.10 Atherosclerotic heart disease of native coronary artery without angina pectoris; Z88.0 Allergy status to penicillin; Z79.82 Long term (current) use of aspirin; Z79.4 Long term (current) use of insulin; Z79.84 Long term (current) use of oral hypoglycemic drugs; Z79.899 Other long term (current) drug therapy
CPT/HCPCS: 97161; 64447; 85025; 73501; 27130; C1776; J2250; J1100; J0690 ×3; J2405; J1650; J3010; J1170

== ENCOUNTER 2023-04-21 06:17 | Emergency (ER) | payer MEDICARE, OTHER ==
[2023-04-21 06:41] VITALS: RESP 18
--- NOTE | 2023-04-21 08:36 | US ---
EXAMINATION TYPE: US venous doppler duplex LE RT DATE OF EXAM: 04/21/2023 7:39 AM COMPARISON: NONE CLINICAL INDICATION: Male, 67 years old with history of pain; right total hip a few days ago, pain an d swelling in calf, no h/o dvt SIDE PERFORMED: Right TECHNIQUE: The lower extremity deep venous system is examined utilizing real time linear array sonog babs with graded compression, doppler sonography and color-flow sonography. VESSELS IMAGED: Common Femoral Vein Deep Femoral Vein Greater Saphenous Vein * Femoral Vein Popliteal Vein Small Saphenous Vein * Proximal Calf Veins (* superficial vessels) Right Leg: Negative for DVT IMPRESSION: Grayscale, color doppler, spectral doppler imaging performed of the deep veins of the lo wer extremities. There is normal flow, compressibility, vascular waveforms.
--- NOTE | 2023-04-21 09:02 | ED ---
General Adult HPI - General Chief complaint: Extremity Problem,Nontraumatic Stated complaint: Post Op Complication, Right Leg swollen Time Seen by Provider: 04/21/23 06:28 Source: patient, RN notes reviewed Mode of arrival: ambulatory Limitations: no limitations - History of Present Illness Initial comments: 67-year-old male presents approximately 8 days status post right hip arthroplasty presents the emergency department with a chief complaint of right leg swelling. Patient reports worsening right leg swelling 2 days. He reports having mid calf pain. He denies any cough or shortness of breath. His follow- up appointment with his orthopedic surgeon this next week. He has been going to physical therapy as he should be. He is still able to walk with a walker. - Related Data Home Medications Medication Instructions Recorded Confirmed Furosemide 20 mg PO DAILY 03/23/15 04/15/23 lisinopriL [Lisinopril] 10 mg PO HS 04/04/15 04/15/23 metFORMIN HCL [Glucophage] 1,000 mg PO BID 04/04/15 04/15/23 Atorvastatin [Lipitor] 80 mg PO HS 04/18/22 04/15/23 Dulaglutide [Trulicity] 4.5 mg SQ DOMINGUEZ 04/18/22 04/15/23 Empagliflozin [Jardiance] 25 mg PO QAM 04/18/22 04/15/23 Insulin Degludec [Tresiba] 60 units SQ QAM 04/18/22 04/15/23 Metoprolol Tartrate [Lopressor] 25 mg PO BID 04/18/22 04/15/23 Nitroglycerin Sl Tabs [Nitrostat] 0.4 mg SUBLINGUAL Q5M PRN 04/18/22 04/15/23 Pioglitazone [Actos] 15 mg PO DAILY 04/18/22 04/15/23 Repaglinide 0.5 mg PO AC-SUPPER 04/18/22 04/15/23 Sildenafil Citrate [Viagra] 100 mg PO DIRECTED PRN 04/18/22 04/15/23 Aspirin [Adult Low Dose Aspirin EC] 81 mg PO DAILY 06/27/22 04/15/23 Previous Rx's Medication Instructions Recorded Acetaminophen-Codeine 300-30mg 1 tab PO Q6H PRN 7 Days #28 tablet 04/16/23 [Tylenol w/codeine #3] Aspirin [Adult Low Dose Aspirin EC] 81 mg PO BID #60 tab 04/16/23 Sennosides/Docusate Sodium 2 each PO DAILY PRN #30 tablet 04/16/23 [Senna-S 8.6-50 mg Tablet] Allergies Allergy/AdvReac Type Severity Reaction Status Date / Time bee venom protein (honey bee) Allergy Swelling Verified 04/21/23 06:20 hydrocodone Allergy Unknown Verified 04/21/23 06:20 hydroxyzine Allergy Rash/Hives Verified 04/21/23 06:20 Penicillins Allergy Anaphylaxis Verified 04/21/23 06:20 novacaine AdvReac prolonged Uncoded 04/21/23 06:20 numbness Review of Systems ROS Statement: Those systems with pertinent positive or pertinent negative responses have been documented in the HPI. ROS Other: All systems not noted in ROS Statement are negative. Past Medical History Past Medical History: Diabetes Mellitus, Hyperlipidemia, Hypertension Additional Past Medical History / Comment(s): hiatal hernia, Last Myocardial Infarction Date:: 08/07/17 History of Any Multi-Drug Resistant Organisms: None Reported Past Surgical History: Cholecystectomy, Joint Replacement, Orthopedic Surgery Additional Past Surgical History / Comment(s): lt knee scope,left knee replaced,rt shoulder rot cuff repaired,3 FATTY TUMORS REMOVED on chest, right armpit, behind right ear. ,CYSTOSCOPY. COLONSCOPY,lumbar back fusion,lisa cataracts, right hip. Past Anesthesia/Blood Transfusion Reactions: Motion Sickness Additional Past Anesthesia/Blood Transfusion Reaction / Comment(s): "spinal went up and I was numb from armpit down" Date of Last Stent Placement:: 03/09/18 Past Psychological History: No Psychological Hx Reported Smoking Status: Never smoker Past Alcohol Use History: None Reported Past Drug Use History: None Reported - Past Family History Brother(s) Family Medical History: Cancer General Exam - General Exam Comments Initial Comments: General: Alert, in no acute distress Head: atraumatic normocephalic. Eyes PERRL, EOMI intact, mucous membranes moist Respiratory: Lungs clear to auscultation bilaterally Cardiovascular: Heart rate regular rate and Abdominal: Soft without guarding or rebound Extremities: Normal inspection with full range of motion and normal capillary refill, generalized edema to the entire right lower extremity. 2+ Dp/ PT pulses. Distal neurovascular intact Neuroogic: alert and oriented 3, CN II-XII intact, able to ambulate with steady gait Skin: warm dry and intact with normal color Limitations: no limitations Course Vital Signs 04/21/23 04/21/23 04/21/23 06:20 08:03 09:16 Temperature 97.7 F Pulse Rate 88 72 Respiratory 18 18 Rate Blood Pressure 114/71 114/62 O2 Sat by Pulse 98 100 Oximetry 04/21/23 10:37 Temperature 97.6 F Pulse Rate 66 Respiratory 18 Rate Blood Pressure 150/72 O2 Sat by Pulse 95 Oximetry - Reevaluation(s) Reevaluation #1: 04/21/23 09:12 patient reevaluated and updated on ultrasound results. Aware awaiting Ortho to return 04/21/23 10:12 Edy Sanz PA-C at bedside to evaluate the patient. 04/21/23 11:00 case discussed admit who recommends discharging the patient in follow-up with Dr. Mejia Medical Decision Making - Medical Decision Making Was pt. sent in by a medical professional or institution (LESLIE Ceballos, GRINDING MACHINE OPERATOR AUTOMATIC, urgent care, hospital, or prison...) When possible be specific @ -[No] Did you speak to anyone other than the patient for history (EMS, parent, family, police, friend...)? What history was obtained from this source @ -[No] Did you review nursing and triage notes (agree or disagree)? Why? @ -[I reviewed and agree with nursing and triage notes] Were old charts reviewed (outside hosp., previous admission, EMS record, old EKG, old radiological studies, urgent care reports/EKG's, prison records)? Report findings @ -[No old charts were reviewed] Differential Diagnosis (chest pain, altered mental status, abdominal pain women, abdominal pain men, vaginal bleeding, weakness, fever, dyspnea, syncope, headache, dizziness, GI bleed, back pain, seizure, CVA, palpatations, mental health, musculoskeletal)? @ -[not applicable] EKG interpreted by me (3pts min.). @ -[As above] X-rays interpreted by me (1pt min.). @ -[None done] CT interpreted by me (1pt min.). @ -[None done] U/S interpreted by me (1pt. min.). @ -Yes negative for DVT What testing was considered but not performed or refused? (CT, X-rays, U/S, labs)? Why? @ -[None] What meds were considered but not given or refused? Why? @ -[None] Did you discuss the management of the patient with other professionals (professionals i.e. , PA, GRINDING MACHINE OPERATOR AUTOMATIC, lab, RT, psych nurse, clinical social work therapist, maintenance assistant, teacher, driver license reviewing officer, case making machine operator)? Give summary @ -[No] Was smoking cessation discussed for >3mins.? @ -[No] Was critical care preformed (if so, how long)? @ -[No] Were there social determinants of health that impacted care today? How? (Homelessness, low income, unemployed, alcoholism, drug addiction, transportation, low edu. Level, literacy, decrease access to med. care, senior living, re hab)? @ -[No] Was there de-escalation of care discussed even if they declined (Discuss DNR or withdrawal of care, Hospice)? DNR status @ -[No] What co-morbidities impacted this encounter? (DM, HTN, Smoking, COPD, CAD, Cancer, CVA, ARF, Chemo, Hep., AIDS, mental health diagnosis, sleep apnea, morbid obesity)? @ -[None] Was patient admitted / discharged? Hospital course, mention meds given and route, prescriptions, significant lab abnormalities, going to OR and other pertinent info. @ -Discharged. This is a 67-year-old male who presents the emergency department with postop problem. Patient's right leg with generalized edema. Patient had negative DVT ultrasound. Management bedside to evaluate the patient and recommends patient stable for discharge. Return precautions discussed at length. Patient discharged in stable condition. Case is discussed Dr. Vora, [facility] who agrees with plan of care Undiagnosed new problem with uncertain prognosis? @ -[No] Drug Therapy requiring intensive monitoring for toxicity (Heparin, Nitro, Insulin, Cardizem)? @ -[No] Were any procedures done? @ -[No] Diagnosis/symptom? @ -Leg swelling - S/p right hip arthroplasty Acute, or Chronic, or Acute on Chronic? @ -Acute Uncomplicated (without systemic symptoms) or Complicated (systemic symptoms)? @ -Uncomplicated Side effects of treatment? @ -[No] Exacerbation, Progression, or Severe Exacerbation? @ -[No] Poses a threat to life or bodily function? How? (Chest pain, USA, PR, pneumonia, PE, COPD, DKA, ARF, appy, cholecystitis, CVA, Diverticulitis, Homicidal, Suicidal, threat to staff... and all critical care pts) @ -Low likelihood Disposition Clinical Impression: Right leg swelling, Post-op pain Disposition: HOME SELF-CARE Condition: Stable Instructions (If sedation given, give patient instructions): Leg Edema (ED), Swollen Knee Joint (ED), Swollen Joint (ED) Additional Instructions: Please follow-up with Dr. Mejia needed PLease return if worsening swelling or pain Is patient prescribed a controlled substance at d/c from ED?: No Referrals: Greg He MD [Primary Care Provider] - 1-2 days Norbert Mejia DO [Doctor of Osteopathic Medicine] - 1-2 days Time of Disposition: 10:25
[2023-04-21 10:53] VITALS: BP 150/72; PULSE 66; TEMP 97.6
--- NOTE | 2023-04-21 10:56 | P.PN ---
Progress Note - Text Progress Note Date: 04/21/23 I was contacted by the emergency room regarding this patient. Patient underwent a direct anterior right total hip arthroplasty on 04/15/[address] Mejia. Patient was essentially doing very well at home until Saturday, he has started to notice some increase in swelling throughout the extremity, progressing to yesterday and today. He presented to the emergency room for further evaluation. Patient underwent a Doppler of the lower extremity which was negative for DVT. I did evaluate the patient today at bedside in the ER, his is present. Patient appeared to be no acute distress patient has discomfort throughout the right lower extremity, is very mild in nature. He notices more swelling in the lower thigh, knee and calf. He has discontinued use of the compression stocking because it was too tight on the extremity. He does remain on the aspirin 81 mg twice a day. DVT prophylaxis. He has noticed no acute changes to the incision, the foam dressing remains in place. On exam there is generalized soft tissue swelling throughout the extremity, there is some bruising noted in the lower leg near the knee and calf. The foam dressing is in good position and condition, there is no erythema around the borders. Patient is able to extend and flex the knee along with foot and ankle with no difficulty. Hip flexion is intact, there is some slight weakness, likely related to recent surgery. Calf soft, no tenderness with palpation. Anterior posterior compartments of the upper or lower leg are soft and compressible. Sensory exam to light touch is intact throughout the extremity, dorsalis pedis pulses 2+ Discussed the case with physician television production assistant in the emergency room, this is likely normal swelling pattern from his recent surgery. Advised icing and elevating of the entire extremity. We also discussed the possibility of a thigh-high more custom compression stockings the swelling continues. Patient advised notices any chest pain, shortness of breath, significant calf pain and swelling to report back to the hospital. Patient will call office on Saturday for follow-up in the next 7-10 days.
== END 2023-04-21 10:38 | disposition home or self-care (01) ==
LOC: EC 06:17
DX: G89.18 Other acute postprocedural pain (principal); M79.89 Other specified soft tissue disorders; E78.5 Hyperlipidemia, unspecified; I10 Essential (primary) hypertension; I25.2 Old myocardial infarction; E11.9 Type 2 diabetes mellitus without complications; Z79.84 Long term (current) use of oral hypoglycemic drugs; Z79.4 Long term (current) use of insulin; Z79.899 Other long term (current) drug therapy; Z91.030 Bee allergy status; Z88.5 Allergy status to narcotic agent; Z88.0 Allergy status to penicillin; Z88.8 Allergy status to other drugs, medicaments and biological substances
CPT/HCPCS: 99283

== ENCOUNTER 2023-08-23 08:03 | Day surgery (SDC) | payer MEDICARE, OTHER ==
[2023-08-23] MEDS: LACTATED RINGERS 1,000 ML IV SCH (08:33)
[2023-08-23 08:48] LABS: Glucose,Whole Blood 81 mg/dL (70-110)
[2023-08-23 09:04] VITALS: TEMP 97.8
[2023-08-23] MEDS ORDERED: PROPOFOL 10 MG/ML 20 ML VIAL IV ONE (09:30)
[2023-08-23] MEDS ORDERED: LIDOCAINE 1% INJ 10MG/ML (20 ML MDV) ONE (09:30)
--- NOTE | 2023-08-23 09:55 | P.PCN ---
Date of Procedure: 08/23/23 Procedure(s) Performed: BRIEF HISTORY: Patient is a 68-year-old pleasant white male scheduled for an elective colonoscopy as a part of screening for colon cancer and positive cologuard. PROCEDURE PERFORMED: Colonoscopywith snare polypectomy and Endo Clip placement. PREOPERATIVE DIAGNOSIS: Screening for colon cancer/positive cologuard. IV sedation per Anesthesia. PROCEDURE: After informed consent was obtained, the patient, was brought into the endoscopy unit. IV sedation was administered by Anesthesia under continuous monitoring. Digital rectal examination was normal. Initially the Olympus CF-160 flexible video colonoscope was then inserted in the rectum, gradually advanced into the cecum without any difficulty. Careful examination was performed as the scope was gradually being withdrawn. Ileocecal valve and the appendiceal orifice were visualized and appeared normal. Prep was excellent. Mucosa of the cecum,had a 1.2 cm flat polyp that was removed by snare polypectomy followed by Endo Clip placement. Mucosa of the ascending colon, transverse colon, descending colon, sigmoid colon, and rectum appeared normal.in the mid rectum there was a 5 mm polyp that was removed by cold snare polypectomy. Retroflexion was performed in the rectum and no lesions were seen. The patient tolerated the procedure well. IMPRESSION: 1.2 cm flat cecal polyp status post snare polypectomy followed by Endo Clip placement 5 mm rectal polyp status post cold snare polypectomy RECOMMENDATIONS: Findings of this examination were discussed with the patient As well as his family. He was advised to follow with the biopsy results. if the biopsy reveals adenoma, recommend repeat colonoscopy in 3 years..
[2023-08-23 10:59] VITALS: BP 136/85; PULSE 58; RESP 20
== END 2023-08-23 10:39 | disposition home or self-care (01) ==
LOC: ORWHC2ENDO 08:03
PROVIDERS: ATTEND Internal Medicine Gastroenterology
DX: D12.0 Benign neoplasm of cecum (principal); D12.8 Benign neoplasm of rectum; I25.10 Atherosclerotic heart disease of native coronary artery without angina pectoris; I10 Essential (primary) hypertension; E78.5 Hyperlipidemia, unspecified; E11.9 Type 2 diabetes mellitus without complications; Z79.85 Long-term (current) use of injectable non-insulin antidiabetic drugs; Z79.899 Other long term (current) drug therapy; Z79.82 Long term (current) use of aspirin; Z88.0 Allergy status to penicillin; Z88.8 Allergy status to other drugs, medicaments and biological substances; Z88.1 Allergy status to other antibiotic agents; Z91.030 Bee allergy status
CPT/HCPCS: 88305; 45382; 45385; J2001; J2704

== ENCOUNTER 2024-11-22 00:32 | Emergency (ER) | payer MEDICARE, OTHER ==
[2024-11-22 00:36] VITALS: RESP 18; TEMP 97.8
--- NOTE | 2024-11-22 02:54 | XR ---
EXAM: XR Bilateral Ribs, 3 Views CLINICAL HISTORY: Fall from 6 foot ladder, lost consciousness TECHNIQUE: Frontal and oblique views of the bilateral ribs. COMPARISON: No relevant prior studies available. FINDINGS: Lungs: Unremarkable as visualized. No consolidation. Pleural space: Unremarkable. No pneumothorax. Bones/joints: No displaced rib fracture identified. Upper abdomen: Cholecystectomy clips. IMPRESSION: No displaced rib fracture identified
--- NOTE | 2024-11-22 03:02 | CT ---
EXAM: CT Head Without Intravenous Contrast CLINICAL HISTORY: ITS.REASON CT Reason: pain TECHNIQUE: Axial computed tomography images of the head/brain without intravenous contrast. CTDI is 45.3 mGy and DLP is 1134.9 mGy-cm. This CT exam was performed using one or more of the following dose reduction techniques: automated exposure control, adjustment of the mA and/or kV according to patient size, and/or use of iterative reconstruction technique. COMPARISON: No relevant prior studies available. FINDINGS: Brain: There is a tiny acute subdural hematoma over the left frontal convexity measuring 3.3 mm in maximal diameter. With. No significant white matter disease. No edema. Ventricles: Unremarkable. No ventriculomegaly. Bones/joints: Unremarkable. No acute fracture. Soft tissues: Unremarkable. Sinuses: Unremarkable as visualized. No acute sinusitis. Mastoid air cells: Unremarkable as visualized. No mastoid effusion. IMPRESSION: There is a tiny acute subdural hematoma over the left frontal convexity measuring 3.3 mm in maximal diameter. Recommend short-term interval follow-up to evaluate for stability. EXAM: CT Cervical Spine Without Intravenous Contrast CLINICAL HISTORY: ITS.REASON CT Reason: pain TECHNIQUE: Axial computed tomography images of the cervical spine without intravenous contrast. CTDI is 21.8 mGy and DLP is 649.7 mGy-cm. This CT exam was performed using one or more of the following dose reduction techniques: automated exposure control, adjustment of the mA and/or kV according to patient size, and/or use of iterative reconstruction technique. COMPARISON: No relevant prior studies available. FINDINGS: Vertebrae: Unremarkable. No acute fracture. Discs/spinal canal/neural foramina: No acute findings. There is a critical spinal canal stenosis at C6-7 and severe stenosis at C5-6. Soft tissues: Unremarkable. IMPRESSION: No evidence of acute cervical spine pathology. Critical spinal canal stenosis at C6-7. Recommend MRI of the cervical spine to evaluate for myelopathy. <MYCVCSECTION> Communications: 11/22/24 03:07 Call Doctor Regarding Above results, called on 11/22 03:07 (-04:00)
--- NOTE | 2024-11-22 03:08 | ED ---
Fall HPI - General Chief Complaint: Fall Stated Complaint: Fall Time Seen by Provider: 11/22/24 00:48 Source: patient, RN notes reviewed Mode of arrival: ambulatory - History of Present Illness Initial Comments: This is a 69-year-old male with history including DM, hypertension, hyperlipidemia and AMI presenting for fall from ladder occurring at 2330 this evening. Patient states he was on top of a 6 foot ladder when he fell backwards due to loss of balance, striking the right side of his head onto a chiquita floor with associated neck and right chest pain. Patient endorses possible loss of consciousness with some ongoing nausea and neck pain as well. Patient endorses use of ASA 81 but denies use of blood thinners. Denies vision changes, dizziness, lethargy, altered mental status. 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 Fall Witnessed: yes, by family Place Fall Occurred: home Loss of Consciousness: yes Prolonged Down Time?: no Symptoms Prior to Fall: none Location: head, neck, chest Context: tripped/slipped Associated Symptoms: headache, neck pain, chest paint - Related Data Home Medications Medication Instructions Recorded Confirmed Furosemide 20 mg PO QAM 03/23/15 08/23/23 lisinopriL [Lisinopril] 10 mg PO HS 04/04/15 08/23/23 metFORMIN HCL [Glucophage] 1,000 mg PO BID 04/04/15 08/23/23 Atorvastatin [Lipitor] 80 mg PO HS 04/18/22 08/23/23 Dulaglutide [Trulicity] 4.5 mg SQ DOMINGUEZ 04/18/22 08/23/23 Empagliflozin [Jardiance] 25 mg PO QAM 04/18/22 08/23/23 Insulin Degludec [Tresiba] 60 units SQ QAM 04/18/22 08/23/23 Metoprolol Tartrate [Lopressor] 25 mg PO BID 04/18/22 08/23/23 Nitroglycerin Sl Tabs [Nitrostat] 0.4 mg SUBLINGUAL Q5M PRN 04/18/22 08/23/23 Pioglitazone [Actos] 15 mg PO QAM 04/18/22 08/23/23 Repaglinide 0.5 mg PO AC-SUPPER 04/18/22 08/23/23 Sildenafil Citrate [Viagra] 100 mg PO DIRECTED PRN 04/18/22 08/23/23 Aspirin [Adult Low Dose Aspirin EC] 81 mg PO DAILY 06/27/22 08/23/23 Allergies Allergy/AdvReac Type Severity Reaction Status Date / Time bee venom protein (honey bee) Allergy Swelling Verified 11/22/24 00:36 hydrocodone Allergy Unknown Verified 11/22/24 00:36 hydroxyzine Allergy Rash/Hives Verified 11/22/24 00:36 Penicillins Allergy Anaphylaxis Verified 11/22/24 00:36 novacaine AdvReac prolonged Uncoded 11/22/24 00:36 numbness Review of Systems ROS Statement: Those systems with pertinent positive or pertinent negative responses have been documented in the HPI. ROS Other: All systems not noted in ROS Statement are negative. Past Medical History Past Medical History: Chest Pain / Angina, Diabetes Mellitus, Hyperlipidemia, Hypertension, Myocardial Infarction (VT) Additional Past Medical History / Comment(s): hiatal hernia Last Myocardial Infarction Date:: 08/06/2017 History of Any Multi-Drug Resistant Organisms: None Reported Past Surgical History: Cholecystectomy, Heart Catheterization With Stent, Joint Replacement, Orthopedic Surgery Additional Past Surgical History / Comment(s): lt knee scope, Lt. TKA, Rt shoulder rot cuff repair,3 fatty tumors on chest, right armpit, behind right ear, cystoscopy,colonoscopy,lumbar back fusion, lisa cataracts, Rt. SUSANNAH Past Anesthesia/Blood Transfusion Reactions: Motion Sickness Additional Past Anesthesia/Blood Transfusion Reaction / Comment(s): "spinal went up and I was numb from armpit down" when had knee scope Date of Last Stent Placement:: 08/07/2017 Past Psychological History: No Psychological Hx Reported Smoking Status: Never smoker Past Alcohol Use History: None Reported Past Drug Use History: None Reported - Past Family History Brother(s) Family Medical History: Cancer General Exam Limitations: no limitations General appearance: alert, in no apparent distress Head exam: Present: normocephalic, other (Positive right parietal scalp TTP without obvious hematoma, open wound, depression, crepitus. Hair in area stained green from grass according to patient.) Eye exam: Present: normal appearance, PERRL, EOMI, other (Negative raccoon eyes). Absent: scleral icterus, conjunctival injection, periorbital swelling ENT exam: Present: normal exam, mucous membranes dry, normal external ear exam (Negative blood/CSF), other (Negative Denny sign) Neck exam: Present: normal inspection. Absent: tenderness, meningismus, lymphadenopathy Respiratory exam: Present: normal lung sounds bilaterally, chest wall tenderness (Positive left parasternal tenderness without obvious crepitus.), other (Negative rib tenderness, crepitus). Absent: respiratory distress, wheezes, rales, rhonchi, stridor, accessory muscle use, decreased breath sounds, prolonged expiratory Cardiovascular Exam: Present: regular rate, normal rhythm, normal heart sounds. Absent: systolic murmur, diastolic murmur, rubs, gallop, clicks GI/Abdominal exam: Present: soft, normal bowel sounds. Absent: distended, tenderness, guarding, rebound, rigid Extremities exam: Present: normal inspection, full ROM, normal capillary refill, other (Bilateral upper and lower extremity neurovascular and motor function intact with distal pulses +2). Absent: tenderness, pedal edema, joint swelling, calf tenderness Back exam: Present: vertebral tenderness (Positive vertebral tenderness extending from cervical spine to T4 without obvious crepitus or step-off). Absent: full ROM Neurological exam: Present: alert, oriented X3, CN II-XII intact Psychiatric exam: Present: normal affect, normal mood Skin exam: Present: warm, dry, intact, normal color. Absent: rash Course Vital Signs 11/22/24 00:33 Temperature 97.8 F Pulse Rate 89 Respiratory 18 Rate Blood Pressure 149/90 O2 Sat by Pulse 95 Oximetry Medical Decision Making - Medical Decision Making Was pt. sent in by a medical professional or institution (, PA, AGRICULTURAL EXTENSION EDUCATOR, urgent care, hospital, or skilled nursing...) When possible be specific @ -No Did you speak to anyone other than the patient for history (EMS, parent, family, police, friend...)? What history was obtained from this source @ - provided portion of HPI Did you review nursing and triage notes (agree or disagree)? Why? @ -I reviewed and agree with nursing and triage notes Were old charts reviewed (outside hosp., previous admission, EMS record, old EKG, old radiological studies, urgent care reports/EKG's, skilled nursing records)? Report findings @ -No old charts were reviewed Differential Diagnosis (chest pain, altered mental status, abdominal pain women, abdominal pain men, vaginal bleeding, weakness, fever, dyspnea, syncope, headache, dizziness, GI bleed, back pain, seizure, CVA, palpatations, mental health, musculoskeletal)? @ -Differential Musculoskeletal Muscular strain, contusion, ligament sprain, fracture, arthritis, septic arthritis, bursitis, cellulitis, muscle spasm, nerve compression, DVT, arterial occlusion, herpes zoster, electrolyte abnormality, tumor.... This is not meant to be in all inclusive list differential Headache: Migraine, tension, cluster, carbon monoxide, central venous thrombosis, pension karma temporal arteritis, acute closure glaucoma, intercranial hemorrhage, mastoiditis, sinusitis, head injury, this is not meant to be an all-inclusive list. EKG interpreted by me (3pts min.). @ -Sinus rhythm with isolated T wave inversion in lead III. No ST deviation. Ventricular rate 80 bpm, MELQUIADES 194 ms, QRS 86 ms, QTc 385 ms. X-rays interpreted by me (1pt min.). @ -Rib with chest x-ray shows no acute pneumothorax, rib fracture or displacement. CT interpreted by me (1pt min.). @ -Head/cervical spine CT shows acute subdural hematoma over left frontal convexity measuring 3.[address]. [address] shows no acute fractures with critical spinal canal stenosis at C6-7 and severe stenosis at C5-6. U/S interpreted by me (1pt. min.). @ -None done What testing was considered but not performed or refused? (CT, X-rays, U/S, labs)? Why? @ -None What meds were considered but not given or refused? Why? @ -None Did you discuss the management of the patient with other professionals (professionals i.e. , PA, AGRICULTURAL EXTENSION EDUCATOR, lab, RT, psych nurse, social services director, deicer inspector pneumatic, teacher, safety and security officer, casework specialist)? Give summary @ -Spoke to Dr Recio who advised TXA prior to transfer. Was smoking cessation discussed for >3mins.? @ -No Was critical care preformed (if so, how long)? @ -No Were there social determinants of health that impacted care today? How? (Homelessness, low income, unemployed, alcoholism, drug addiction, transportation, low edu. Level, literacy, decrease access to med. care, halfway, rehab)? @ -No Was there de-escalation of care discussed even if they declined (Discuss DNR or withdrawal of care, Hospice)? DNR status @ -No What co-morbidities impacted this encounter? (DM, HTN, Smoking, COPD, CAD, Cancer, CVA, ARF, Chemo, Hep., AIDS, mental health diagnosis, sleep apnea, morbid obesity)? @ -None Was patient admitted / discharged? Hospital course, mention meds given and route, prescriptions, significant lab abnormalities, going to OR and other pertinent info. @ -Head/cervical spine CT shows acute subdural hematoma over left frontal convexity measuring 3.[address] shows no acute fractures with critical spinal canal stenosis at C6-7 and severe stenosis at C5-6. Rib with chest x-ray shows no acute pneumothorax, rib fracture or displacement. Basic lab work ordered. Spoke to Dr. Recio who advised initial dose of TXA prior to transfer. Patient will be transferred to [facility] via EMS. Discussed patient with Dr. Oliva. Undiagnosed new problem with uncertain prognosis? @ -No Drug Therapy requiring intensive monitoring for toxicity (Heparin, Nitro, Insulin, Cardizem)? @ -No Were any procedures done? @ -No Diagnosis/symptom? @ -Subdural hematoma following fall from 6 feet Acute, or Chronic, or Acute on Chronic? @ -Acute Uncomplicated (without systemic symptoms) or Complicated (systemic symptoms)? @ -Uncomplicated Side effects of treatment? @ -No Exacerbation, Progression, or Severe Exacerbation? @ -No Poses a threat to life or bodily function? How? (Chest pain, USA, VT, pneumonia, PE, COPD, DKA, ARF, appy, cholecystitis, CVA, Diverticulitis, Homicidal, Suicidal, threat to staff... and all critical care pts) @ -Subdural hematoma Disposition Clinical Impression: Subdural hematoma, Cervical stenosis of spinal canal Disposition: OTHER INSTITUTION NOT DEFINED Condition: Stable Referrals: None,Stated [Primary Care Provider] - 1-2 days Time of Disposition: 03:15 - Out of Hospital Transfer - Req. Specs Out of Hospital Transfer - Requested Specifics: Other Emergency Center ([facility])
[2024-11-22 03:44] LABS: Basophils # (A) 0.02 10*3/uL (0.00-0.10); Basophils % (A) 0.2 %; Eosinophils % (A) 0.9 %; HCT 46.9 % (39.6-50.0); Lymphocytes # (A) 1.91 10*3/uL (0.90-5.00); Lymphocytes % (A) 17.8 %; MCH 29.4 pg (27.0-32.0); MCHC 34.1 g/dL (32.0-37.0); MCV 86.2 fL (80.0-97.0); Mean Platelet Volume 10.8 fL (9.5-12.2); Monocytes # (A) 0.91 10*3/uL (0.20-1.00); Monocytes % (A) 8.5 %; Neutrophils # (A) 7.77 10*3/uL (1.80-7.70); Neutrophils % (A) 72.3 %; Platelet Count 203 10*3/uL (140-440); RBC 5.44 10*6/uL (4.40-5.60); RDW 15.3 % (11.5-14.5); WBC 10.74 10*3/uL (4.50-10.00)
[2024-11-22] MEDS: TRANEXAMIC 1,000 MG/100ML-NACL 1,000 MG in SALINE 1 100ML.BAG IV STA (03:52)
[2024-11-22 03:54] LABS: ALT 32 U/L (4-49); AST 53 U/L (17-59); African American GFR (CKD) 76 (>60 ml/min/1.73 sqM); Albumin 4.1 g/dL (3.5-5.0); Alkaline Phosphatase 106 U/L (38-126); Anion Gap 9 mmol/L; Blood Urea Nitrogen 25 mg/dL (9-20); Calcium 9.6 mg/dL (8.4-10.2); Carbon Dioxide 26 mmol/L (22-30); Chloride 100 mmol/L (98-107); Glucose 145 mg/dL (74-99); Non-African American GFR(CKD) 65 (>60 ml/min/1.73 sqM); Potassium 4.5 mmol/L (3.5-5.1); Sodium 135 mmol/L (137-145); Total Bilirubin 1.3 mg/dL (0.2-1.3); Total Protein 6.5 g/dL (6.3-8.2)
[2024-11-22 04:33] VITALS: BP 133/71; PULSE 81
== END 2024-11-22 04:00 | disposition other institution (70) ==
LOC: EC 00:32
DX: S06.5XAA Traumatic subdural hemorrhage with loss of consciousness status unknown, initial encounter (principal); M48.02 Spinal stenosis, cervical region; Z88.0 Allergy status to penicillin; Z88.5 Allergy status to narcotic agent; Z88.8 Allergy status to other drugs, medicaments and biological substances; W11.XXXA Fall on and from ladder, initial encounter
CPT/HCPCS: 36415; 70450; 71111; 72125; 80053; 85025; 93005; 96374; 99285

== ENCOUNTER → 2024-12-06 | Outpatient (CLI) | payer MEDICARE, OTHER ==
--- NOTE | 2024-12-06 10:22 | MR ---
MRI cervical spine and thoracic spine without contrast HISTORY: Neck pain and back pain. COMPARISON: None. TECHNIQUE: Multiecho multiplanar images of the cervical spine and thoracic spine were obtained withou t contrast. FINDINGS: MRI cervical spine: The craniovertebral junction relationships and prevertebral soft tissues are normal. The cervical vertebral segments are normal in height and alignment and there is no fracture or sublux ation. There is mild disc space narrowing and disc bulge at the C3-4 and C4-5 level. There is moderate to ma rked disc space narrowing, spondylosis, disc bulge and discogenic endplate changes at the before meal s C5-6, C6-7 and C7/T1 levels. At this C3-4 level, there is a small central posterior disc spur complex resulting in mild mass effec t on the ventral aspect of thecal sac At the C4-5 level, there is a large right paracentral disc spur complex resulting in marked mass effe ct on the right anterolateral aspect of thecal sac and resulting in a moderate to severe spinal steno sis. Mild posterior disc bulge with spurs C5-6 and C6-7 levels and mild spinal stenosis. The thoracic cord is normal in size and signal intensity and there is no myelomalacia. There is multilevel neural foraminal stenosis as follows; mild at C3-4 on the right, moderate at C4-5 bilaterally, severe at C5-6 on the right, moderate at C5-6 on the left, mild at C6-7 on the right an d moderate at C6-7 on the left. MRI thoracic spine: Thoracic vertebral segments are normal in height and alignment is no fracture, subluxation or focal i ntraosseous abnormality. There is mild multilevel degenerative disease in the mid and upper thoracic spine. There is no thorac ic disc herniation. There is no thoracic spinal stenosis. The thoracic cord is normal in size and sig nal intensity. The paraspinal soft tissues are unremarkable. IMPRESSION: 1. Multilevel degenerative disease in the cervical spine, mild at C3-4 and C4-5 and and moderate at t he C5-6, C6-7 and C7/T1 levels. 2. Large right paracentral disc spur complex at C4-5 resulting in moderate to severe spinal stenosis. 3. Multilevel neural foraminal stenosis in the cervical spine. 4. No significant abnormality in the thoracic spine. There is mild multilevel degenerative disease wi thout thoracic disc herniation or thoracic spinal stenosis. [facility], , 12/06/2024 10:19 AM
== END | disposition home or self-care (01) ==
LOC: RADMRIMAIN 08:15
PROVIDERS: ATTEND Orthopaedic Surgery
DX: S22.000A Wedge compression fracture of unspecified thoracic vertebra, initial encounter for closed fracture (principal); M48.02 Spinal stenosis, cervical region; M43.22 Fusion of spine, cervical region; M50.323 Other cervical disc degeneration at C6-C7 level; M51.34 Other intervertebral disc degeneration, thoracic region; X58.XXXA Exposure to other specified factors, initial encounter
CPT/HCPCS: 72141; 72146